=== PATIENT | male | born 1960 | race Caucasian/White ===

== ENCOUNTER 2019-08-13 11:08 | Emergency (ER) | payer OTHER ==
[~2019-08-13] VITALS: Ht 177.8 cm; Wt 78.0 kg
[2019-08-13 12:54] LABS: BASOPHILS % 1.1 % (0.0-2.0); EOSINOPHILS % 0.4 % (0.0-5.0); HEMATOCRIT. 47.2 % (42.0-52.0); HEMOGLOBIN. 16.1 g/dL (14.0-18.0); LYMPHOCYTES % 12.9 % (20.0-50.0); MEAN CORPUSCULAR HEMOGLOBIN 35.5 pg (28.0-32.0); MEAN CORPUSCULAR VOLUME 103.9 fL (80.0-94.0); MEAN PLATELET VOLUME 7.9 fl (7.4-10.4); MONOCYTES % 6.9 % (2.0-8.0); NEUTROPHILS % 78.7 % (40.0-76.0); PLATELET 174 x1000/uL (130-400); RED BLOOD CELL COUNT 4.55 mill/uL (4.7-6.1); RED CELL DISTRIBUTION WIDTH 13.9 % (11.6-14.6)
[2019-08-13 13:17] LABS: PARTIAL THROMBOPLASTIN TIME 26.5 sec (23.4-31.0); PROTHROMBIN TIME 9.9 sec (9.6-11.0)
[2019-08-13 13:23] LABS: CHLORIDE 103 mEq/L (98-107)
[2019-08-13 14:31] VITALS: BP 148/111
== END 2019-08-13 14:44 | disposition home or self-care (01) ==
LOC: ER 11:08
DX: I82.413 Acute embolism and thrombosis of femoral vein, bilateral (principal); I82.433 Acute embolism and thrombosis of popliteal vein, bilateral; R42 Dizziness and giddiness
CPT/HCPCS: 36415; 71045; 80053; 85025; 93005; 93970; 99284

== ENCOUNTER 2019-10-02 08:10 | Emergency (ER) | payer OTHER ==
[~2019-10-02] VITALS: Ht 177.8 cm; Wt 73.0 kg
[2019-10-02 08:40] VITALS: BP 115/85
== END 2019-10-02 09:10 | disposition home or self-care (01) ==
LOC: ER 08:39
DX: R60.0 Localized edema (principal); Z86.718 Personal history of other venous thrombosis and embolism; Z86.711 Personal history of pulmonary embolism
CPT/HCPCS: 99283